=== PATIENT | male | born 1940 | race Caucasian/White ===

== ENCOUNTER 2016-05-05 08:04 | Observation (INO) | payer BC, MEDICARE, OTHER ==
[~2016-05-05] VITALS: Ht 165.1 cm; Wt 99.0 kg
[~2016-05-05 08:04] MED LIST: ASPI1TAB69 PO; ATOR40TA16 PO; BLOOD GLUCOSE M1 KIT; BLOOD GLUCOSE T1 TES; CARV12.52 PO; CENTTAB PO; LANCETS1 MI1; OMEP20TA PO; RAMI1.252 PO; [UNRECOGNIZED DRUG - OTHER]; levemir flexpen
[2016-05-05 08:06] VITALS: BP 166/73; PULSE 59; RESP 18; TEMP 98.2; O2SAT 97
[2016-05-05 08:14] VITALS: BP 174/71; PULSE 57; RESP 18; TEMP 98.1; O2SAT 100
--- NOTE | 2016-05-05 08:34 | PD ---
HPI Chief Complaint: Chest Pain Time Seen by Provider: 08:34 Travel History International Travel<30 days: No Contact w/Intl Traveler<30days: No Traveled to known affect area: No History of Present Illness HPI 76-year-old male came to the emergency room with history of chest pain and pressure that started from 1:30 AM. Patient says he was crouched in his recliner and woke up with the pain. He decided to go out of the recliner and lay on the bed so that it would relieve the pain. However this morning the pain was still there. It was radiating to the left side of his neck. He was concerned since he has a significant history of coronary artery disease in the form of 2 stents and CABG. Hence he decided to come to the emergency room. He had taken one full strength aspirin prior to coming in. No history of nausea or vomiting. Currently his pain is 3 out of 10. No history of recent travel long distance, surgery or procedures. His vital signs were stable upon arrival. [facility] Past Medical History Narrative Medical List of his past medical and social history was reviewed from the nursing note. Blood Disorders: No Cancer: No Cardiovascular Problems: Yes High Cholesterol: Yes Diabetes: Yes (BORDERLINE DIABETIC) Patient Takes Glucophage: No Endocrine: Yes Gastrointestinal Disorders: Yes Genitourinary: No Hiatal Hernia: Yes Hypertension: Yes Immune Disorder: No Musculoskeletal: Yes Neurologic: No Psychiatric: No Reproductive: No Respiratory: Yes Myocardial Infarction: Yes (2000) Sleep Apnea: Yes ?: Not Past Surgical History Abdominal Surgery: Yes (APPENDECTOMY) AICD: No Appendectomy: Yes Arteriovenous Shunt: No Cardiac Surgery: No Coronary Artery Bypass Graft: Yes (DOUBLE BYPASS 6 MONTHS AGO) Ear Surgery: No Endocrine Surgery: No Eye Surgery: No Genitourinary Surgery: No Gynecologic Surgery: No Insulin Pump: No Joint Replacement: No Neurologic Surgery: No Oral Surgery: No Pacemaker: No Thoracic Surgery: No Valve Replacement: Yes (AORTIC VALVE 6 MONTHS AGO) Other Surgery: Yes (APPENDIX, PYLENODAL CYST, CHEST CYST REMOVED) Social History Alcohol Use: Yes (BLEND WISKEY 1XPER WEEK ) Tobacco Use: No (QUIT 01/07/01) Substance Use: No Allergies-Medications (Allergen,Severity, Reaction): Coded Allergies: Penicillin (Verified Allergy, Severe, HIVES, 05/05/16) Cortisone (Verified Adverse Reaction, Severe, WEIGHT GAIN, 05/05/16) Comments List of his allergies reviewed from the nursing note. Reported Meds & Prescriptions Reported Meds & Active Scripts Active Omeprazole 20 Mg Tab 20 Mg PO BID Reported Levemir Flextouch Pen Inj (Insulin Detemir) 300 unit/3 ML Pen 30 Units SQ BID Administer @ 8AM & 6PM Ramipril 1.25 Mg Cap 1.25 Mg PO DAILY Centrum Silver (Multiple Vitamins W/ Minerals) 1 Tab 1 Tab PO DAILY 90 Days Carvedilol 12.5 Mg Tab 12.5 Mg PO BID Atorvastatin (Atorvastatin Calcium) 40 Mg Tab 40 Mg PO HS Aspirin 81 Mg Tabdr 81 Mg PO DAILY Narrative Medication List of his home medications reviewed from the nursing note. Review of Systems Except as stated in HPI: all other systems reviewed are Neg Physical Exam Narrative GENERAL: Awake, alert, obese, mild distress SKIN: Warm and dry. HEAD: Atraumatic. Normocephalic. EYES: Pupils equal and round. No scleral icterus. No injection or drainage. ENT: No nasal bleeding or discharge. Mucous membranes pink and moist. NECK: Trachea midline. No JVD. CARDIOVASCULAR: Regular rate and rhythm. No murmur appreciated. RESPIRATORY: No accessory muscle use. Clear to auscultation. Breath sounds equal bilaterally. Tender over the left inferior costal margin GASTROINTESTINAL: Abdomen soft, non-tender, nondistended. Hepatic and splenic margins not palpable. MUSCULOSKELETAL: No obvious deformities. No clubbing. No cyanosis. No edema. NEUROLOGICAL: Awake and alert. No obvious cranial nerve deficits. Motor grossly within normal limits. Normal speech. PSYCHIATRIC: Appropriate mood and affect; insight and judgment normal. Data Data Last Documented VS Vital Signs Date Time Temp Pulse Resp B/P Pulse Ox O2 Delivery O2 Flow Rate FiO2 05/05/16 09:22 59 18 164/68 99 Room Air 05/05/16 08:14 98.1 Orders Electrocardiogram (05/05/16 08:46) Basic Metabolic Panel (Bmp) (05/05/16 08:46) Ckmb (Isoenzyme) Profile (05/05/16 08:46) Complete Blood Count With Diff (05/05/16 08:46) Magnesium (Mg) (05/05/16 08:46) Prothrombin Time / Inr (Pt) (05/05/16 08:46) Act Partial Throm Time (Ptt) (05/05/16 08:46) Troponin I (05/05/16 08:46) Chest, Single Ap (05/05/16 08:46) Ecg Monitoring (05/05/16 08:46) Bilateral Bp Monitoring (05/05/16 08:46) Iv Access Insert/Monitor (05/05/16 08:46) Oximetry (05/05/16 08:46) Oxygen Administration (05/05/16 08:46) Admit Order (Ed Use Only) (05/05/16 10:02) Labs Laboratory Tests Test 05/05/16 08:45 White Blood Count 8.3 TH/MM3 Red Blood Count 3.51 MIL/MM3 Hemoglobin 11.9 GM/DL Hematocrit 33.9 % Mean Corpuscular Volume 96.6 FL Mean Corpuscular Hemoglobin 34.1 PG Mean Corpuscular Hemoglobin 35.3 % Concent Red Cell Distribution Width 13.9 % Platelet Count 177 TH/MM3 Mean Platelet Volume 7.7 FL Neutrophils (%) (Auto) 67.7 % Lymphocytes (%) (Auto) 18.6 % Monocytes (%) (Auto) 10.9 % Eosinophils (%) (Auto) 2.3 % Basophils (%) (Auto) 0.5 % Neutrophils # (Auto) 5.7 TH/MM3 Lymphocytes # (Auto) 1.6 TH/MM3 Monocytes # (Auto) 0.9 TH/MM3 Eosinophils # (Auto) 0.2 TH/MM3 Basophils # (Auto) 0.0 TH/MM3 CBC Comment DIFF FINAL Differential Comment Prothrombin Time 11.5 SEC Prothromb Time International 1.0 RATIO Ratio Activated Partial 29.8 SEC Thromboplast Time Sodium Level 139 MEQ/L Potassium Level 4.4 MEQ/L Chloride Level 105 MEQ/L Carbon Dioxide Level 28.2 MEQ/L Anion Gap 6 MEQ/L Blood Urea Nitrogen 17 MG/DL Creatinine 1.27 MG/DL Estimat Glomerular Filtration 55 ML/MIN Rate Random Glucose 152 MG/DL Calcium Level 8.5 MG/DL Magnesium Level 2.1 MG/DL Total Creatine Kinase 45 U/L Troponin I LESS THAN 0.02 NG/ML MDM Medical Decision Making Medical Screen Exam Complete: Yes Emergency Medical Condition: Yes Medical Record Reviewed: Yes Interpretation(s) Twelve-lead EKG was reviewed by me. Normal sinus rhythm, normal axis, first- degree AV block, bradycardia, nonspecific ST-T wave changes. Heart rate of 59 bpm. Differential Diagnosis ACS, non-STEMI, nonspecific chest pain Narrative Course 10 AM patient has significant history of coronary artery disease, poor control diabetes and obesity besides the fact that he 76 years old. I'm concerned for acute coronary syndrome and I would like to admit him to the chest pain center to be ruled out. Patient is comfortable with this plan. Procedures EKG Prior to Arrival: Yes Diagnosis Primary Impression: Chest pain Qualified Code: R07.9 - Chest pain, unspecified type Admitting Information Admitting Physician Requests: Observation Mague Lopez MD May 05, 2016 08:34 Admitting Physician Requests: Observation Mague Lopez MD May 05, 2016 08:34
[2016-05-05 09:06] LABS: AUTOMATED NEUTROPHIL # 5.7 TH/MM3 (1.8-7.7); BASOPHIL % 0.5 % (0.0-2.0); EOSINOPHIL # 0.2 TH/MM3 (0-0.4); EOSINOPHIL % 2.3 % (0.0-4.0); HEMATOCRIT 33.9 % (39.0-51.0); HEMO FLAGS DIFF FINAL; LYMPH % 18.6 % (9.0-44.0); LYMPHOCYTE # 1.6 TH/MM3 (1.0-4.8); MEAN CELL VOLUME 96.6 FL (80.0-100.0); MEAN CORPUSCULAR HEMOGLOBIN 34.1 PG (27.0-34.0); MEAN CORPUSCULAR HGB CONC 35.3 % (32.0-36.0); MONO % 10.9 % (0.0-8.0); NEUT % 67.7 % (16.0-70.0); PLATELET COUNT 177 TH/MM3 (150-450); RED BLOOD COUNT 3.51 MIL/MM3 (4.50-5.90); RED CELL DISTRIBUTION WIDTH 13.9 % (11.6-17.2); WHITE BLOOD COUNT 8.3 TH/MM3 (4.0-11.0)
[2016-05-05 09:13] LABS: APTT (PATIENT) 29.8 SEC (24.3-30.1); PROTHROMBIN TIME - PATIENT 11.5 SEC (9.8-11.6)
[2016-05-05 09:22] VITALS: BP 164/68; PULSE 59; PULSE 68; RESP 18; O2SAT 99
[2016-05-05 09:23] LABS: ANION GAP 6 MEQ/L (5-15); BICARBONATE 28.2 MEQ/L (21.0-32.0); BLOOD UREA NITROGEN 17 MG/DL (7-18); CHLORIDE 105 MEQ/L (98-107); GLOMERULAR FILTRATION RATE 55 ML/MIN (>89); MAGNESIUM 2.1 MG/DL (1.5-2.5); POTASSIUM 4.4 MEQ/L (3.5-5.1); SODIUM (NA) 139 MEQ/L (136-145)
[2016-05-05 09:31] LABS: CREATINE KINASE 45 U/L (39-308)
[2016-05-05] MEDS ORDERED: INSU1INJ5 SQ (09:40)
--- NOTE | 2016-05-05 09:41 | RADRPT ---
EXAM DATE/TIME: 05/05/2016 09:08 [place] COMPARISON: No previous studies available for comparison. INDICATIONS : Chest Pain MEDICAL HISTORY : Diabeties,, Hypertension, Myocardial Infarct, Dyspnea SURGICAL HISTORY : Valve replacement, Cabg ENCOUNTER: Initial ACUITY: 1 day PAIN SCORE: 7/10 LOCATION: Bilateral chest FINDINGS: Mild basilar consolidation and small pleural effusion seen on the left. Right lung reasonably clear. No pneumothorax seen. Heart size upper limits of normal. Patient has had previous median sternotomy. CONCLUSION: Mild consolidation and small effusion at the left lung base. Upper limits of normal heart size. Albino Pinto MD on May 05, 2016 at 9:38 Board Certified Radiologist. This report was verified electronically.
[2016-05-05 11:00] VITALS: BP 173/66; PULSE 54; RESP 16; O2SAT 98
[2016-05-05] MEDS ORDERED: ONDANSETRON HCL 4 MG/2 ML VIAL IV PRN (11:00)
[2016-05-05] MEDS ORDERED: SODIUM CHLORIDE 0.9% FLUSH 5 ML FLUSH IVF PRN (11:00)
[2016-05-05] MEDS ORDERED: ACETAMINOPHEN/HYDROcodone 325 MG/7.5 MG TAB PO PRN (11:00)
[2016-05-05] MEDS ORDERED: ACETAMINOPHEN 500 MG CPLT PO PRN (11:00)
[2016-05-05] MEDS ORDERED: ALPRAZolam 0.25 MG TAB PO PRN (11:00)
[2016-05-05] MEDS ORDERED: GLUCAGON 1 MG/ML VIAL IM/SQ PRN (11:15)
[2016-05-05] MEDS ORDERED: DEXTROSE 50% IN WATER 50 ML VIAL(D50) IV PRN (11:15)
--- NOTE | 2016-05-05 11:23 | HHI.HP ---
[facility] Primary Care Physician Mukund Hannah MD Chief Complaint Chest pain History of Present Illness This is a 76-year-old male with history of aortic valve replacement and two- vessel CABG presents to the ED with a complaint of waking up at 1:30 this morning with a soreness in the center of his chest. He states he cannot even touch the chest to hurt so bad. It is still that time but not as intense. He had no associated shortness breath nausea or diaphoresis. He states that his symptoms do not feel similar to needing stenting prior to needing his bypass and valve replaced. He denies any recent illnesses. Denies fevers or chills. Denies travel or trauma. He states he is to cardiac rehabilitation on Saturday, , and Saturday for the last 12 years and has had no discomfort while doing so. He has not been coughing. His circular ripsaw operator is Dr. keith and he last saw him in February. Cannot recall last stress testing. Review of Systems General: Patient denies fevers, chills recent, and recent travel HEENT: Patient denies headache, sore throat, difficulty swallowing. Cardiovascular: Has the chest discomfort as mentioned above. Denies sensation of heart beating rapidly or irregularly. Denies diaphoresis. No syncope. Respiratory: Denies shortness of breath or inspirational chest discomfort. Denies coughing wheezing or hemoptysis. GI: Patient denies nausea, vomiting, diarrhea, abdominal pain, bloody stools. Musculoskeletal: Patient denies joint pain or edema. Denies calf pain or edema. Neurovascular: Patient denies numbness, tingling, weakness in extremities. Denies headache. Endocrine: Denies polyuria and polydipsia. Hematologic: Denies easy bruising. Skin: Denies rash or itching. Past Family Social History Allergies: Coded Allergies: Penicillin (Verified Allergy, Severe, HIVES, 05/05/16) Cortisone (Verified Adverse Reaction, Severe, WEIGHT GAIN, 05/05/16) Past Medical History CAD with 2 vessel CABG and aortic valve replacement in 2005. Hypertension hyperlipidemia diabetes. Past Surgical History Aortic valve replacement and two-vessel CABG in 2005. He had stenting prior to CABG. He has had an appendectomy. Reported Medications Reported Meds & Active Scripts Active Omeprazole 20 Mg Tab 20 Mg PO BID Reported Levemir Flextouch Pen Inj (Insulin Detemir) 300 unit/3 ML Pen 30 Units SQ BID Administer @ 8AM & 6PM Ramipril 1.25 Mg Cap 1.25 Mg PO DAILY Centrum Silver (Multiple Vitamins W/ Minerals) 1 Tab 1 Tab PO DAILY 90 Days Carvedilol 12.5 Mg Tab 12.5 Mg PO BID Atorvastatin (Atorvastatin Calcium) 40 Mg Tab 40 Mg PO HS Aspirin 81 Mg Tabdr 81 Mg PO DAILY Active Ordered Medications Current Medications Medications (Trade) Dose Ordered Sig/Alanis Route Start Time Stop Time Status Last Admin (NS Flush) 2 ml UNSCH PRN IVF 05/05/16 11:00 UNV (NS Flush) 2 ml BID IVF 05/05/16 21:00 UNV (Tylenol) 500 mg Q4H PRN PO 05/05/16 11:00 UNV ([place] 7.5-325 Mg) 1 tab Q4H PRN PO 05/05/16 11:00 UNV (Zofran Inj) 4 mg Q6H PRN IV 05/05/16 11:00 UNV (Aspirin) 325 mg DAILY PO 05/06/16 09:00 UNV (Xanax) 0.25 mg Q8H PRN PO 05/05/16 11:00 UNV (Lipitor) 40 mg HS PO 05/05/16 21:00 UNV (Coreg) 12.5 mg BID PO 05/05/16 21:00 UNV (Protonix) 20 mg BID PO 05/05/16 21:00 UNV (Altace) 1.25 mg DAILY PO 05/06/16 09:00 UNV Family History Patient is adopted and does not know his family medical history. Social History Patient quit smoking about 10 years ago but prior that he smoked 2 packs daily for 35 years. He has occasional alcohol use. Denies illicit drugs. He has been for 29 years. Physical Exam Vital Signs Vital Signs Date Time Temp Pulse Resp B/P Pulse Ox O2 Delivery O2 Flow Rate FiO2 05/05/16 09:22 59 18 164/68 99 Room Air 05/05/16 09:22 99 Room Air 05/05/16 09:22 68 18 164/68 99 Room Air 05/05/16 08:21 56 18 100 Room Air 05/05/16 08:14 98.1 57 18 174/71 100 05/05/16 08:06 98.2 59 18 166/73 97 Physical Exam GENERAL: This is a well-nourished, well-developed patient, in no apparent distress. Patient speaks in clear complete sentences. Patient is pleasant. HEENT: Head is atraumatic and normocephalic. Neck is supple without lymphadenopathy and trachea is midline. No JVD or carotid bruits. CARDIOVASCULAR: Regular rate and rhythm without gallops or rubs. There is a grade 2 systolic murmur on the right sternal border. It does not radiate into the neck. RESPIRATORY: Clear to auscultation. Breath sounds equal bilaterally. No wheezes , rales, or rhonchi. Chest wall is very tender to palpate. This is the discomfort that brought him to the ED. No use of accessory muscles. GASTROINTESTINAL: Abdomen is nontender, nondistended. Abdomen soft. No obvious pulsatile mass or bruit. No CVA tenderness. Strong femoral pulses bilaterally. Normal bowel sounds in all quadrants. MUSCULOSKELETAL: Patient is moving upper and lower extremities freely. No calf tenderness or edema, no Homans sign. Strong pulses in upper and lower extremities. NEUROLOGICAL: Patient is alert and oriented. Cranial nerves 2-12 are grossly intact. No focal deficits and speech is clear. SKIN: No rash and turgor is normal. Laboratory Laboratory Tests Test 05/05/16 08:45 White Blood Count 8.3 Red Blood Count 3.51 Hemoglobin 11.9 Hematocrit 33.9 Mean Corpuscular Volume 96.6 Mean Corpuscular Hemoglobin 34.1 Mean Corpuscular Hemoglobin 35.3 Concent Red Cell Distribution Width 13.9 Platelet Count 177 Mean Platelet Volume 7.7 Neutrophils (%) (Auto) 67.7 Lymphocytes (%) (Auto) 18.6 Monocytes (%) (Auto) 10.9 Eosinophils (%) (Auto) 2.3 Basophils (%) (Auto) 0.5 Neutrophils # (Auto) 5.7 Lymphocytes # (Auto) 1.6 Monocytes # (Auto) 0.9 Eosinophils # (Auto) 0.2 Basophils # (Auto) 0.0 CBC Comment DIFF FINAL Differential Comment Prothrombin Time 11.5 Prothromb Time International 1.0 Ratio Activated Partial 29.8 Thromboplast Time Sodium Level 139 Potassium Level 4.4 Chloride Level 105 Carbon Dioxide Level 28.2 Anion Gap 6 Blood Urea Nitrogen 17 Creatinine 1.27 Estimat Glomerular Filtration 55 Rate Random Glucose 152 Calcium Level 8.5 Magnesium Level 2.1 Total Creatine Kinase 45 Troponin I LESS THAN 0.02 Result Diagram: 05/05/1645 05/05/1645 Imaging Last Impressions Chest X-Ray 05/05/16845 Signed Impressions: Service Date/Time: Thursday, May 05, 2016 09:08 - CONCLUSION: Mild consolidation and small effusion at the left lung base. Upper limits of normal heart size. Albino Pinto MD Course Initial EKG has sinus rhythm without significant ST segment depressions or elevations. Assessment and Plan Assessment and Plan * Atypical chest pain: Patient will continue to have cardiac enzymes and EKGs for ruling out purposes. His discomfort is very atypical. It is tender to palpate the area. He will get Toradol IV and reassess. He will be seen by Dr. Moreno of cardiology in the chest pain center. He likely will not have stress testing. He will be advised to follow-up with his circular ripsaw operator as primary care physician. * History of CAD: Patient has history of CABG and valve replacement. He will need to follow-up with Dr. keith. * Hypertension: Continue her medication. * Diabetes: We'll resume his medication at discharge. He will be on sliding scale insulin coverage while the chest pain center. He needs to follow a diabetic diet. * Hyperlipidemia: Continue current medication. Shant Wasserman May 05, 2016 11:23
[2016-05-05] MEDS ORDERED: KETOROLAC TROMETHAMINE 30 MG/ML (IVP) VIAL IVP ONE (12:00)
[2016-05-05 13:01] LABS: CREATINE KINASE 43 U/L (39-308)
[2016-05-05 13:08] VITALS: BP 131/78
--- NOTE | 2016-05-05 13:39 | HHI.DCPOC ---
Discharge Care Plan Diagnosis: (1) Chest pain, atypical (2) CAD (coronary artery disease) (3) DM (diabetes mellitus) (4) Hypertension (5) Hyperlipidemia (6) Hx of CABG (7) Hx of aortic valve replacement Goals to Promote Your Health * To prevent worsening of your condition and complications * To maintain your health at the optimal level Directions to Meet Your Goals Take your medications as prescribed Follow your dietary instruction Follow activity as directed Keep your appointments as scheduled Take your immunizations and boosters as scheduled If your symptoms worsen call your PCP, if no PCP go to Urgent Care Center or Emergency Room Smoking is Dangerous to Your Health. Avoid second hand smoke Call the 24-hour hour crisis hotline for domestic abuse at Shant Wasserman May 05, 2016 13:39
[2016-05-05] MEDS ORDERED: INSULIN ASPART SUPPLEMENTAL SCALE SQ SCH (16:00)
--- NOTE | 2016-05-05 16:45 | EKG ---
Date Performed: 05/05/2016 Time Performed: 08:16:50 PTAGE: 76 years EKG: SINUS BRADYCARDIA WITH FIRST DEGREE AV BLOCK ABNORMAL ECG PREVIOUS TRACING : 06/27/2010 10.38 Since previous tracing, no significant change noted DOCTOR: Eliezer Moreno Interpretating Date/Time 05/05/2016 16:44:21
[2016-05-05] MEDS ORDERED: CARVEDILOL 12.5 MG TAB PO SCH (21:00)
[2016-05-05] MEDS ORDERED: PANTOPRAZOLE SOD 20 MG DELAYED RELEASE TAB PO SCH (21:00)
[2016-05-05] MEDS ORDERED: SODIUM CHLORIDE 0.9% FLUSH 5 ML FLUSH IVF SCH (21:00)
[2016-05-05] MEDS ORDERED: ATORVASTATIN 40 MG TAB PO SCH (21:00)
[2016-05-06] MEDS ORDERED: RAMIPRIL 1.25 MG CAP PO SCH (09:00)
[2016-05-06] MEDS ORDERED: ASPIRIN 325 MG TAB PO SCH (09:00)
--- NOTE | 2016-05-06 15:23 | EKG ---
Date Performed: 05/05/2016 Time Performed: 12:06:09 PTAGE: 76 years EKG: SINUS BRADYCARDIA WITH FIRST DEGREE AV BLOCK ABNORMAL ECG PREVIOUS TRACING : 05/05/2016 08.16 Since previous tracing, no significant change noted DOCTOR: Eliezer Moreno Interpretating Date/Time 05/06/2016 15:21:32
[2016-08-03] MEDS ORDERED: FURO1TAB60 PO (15:52)
[2016-08-03] MEDS ORDERED: SPIR25TA PO (15:52)
[2016-08-03] MEDS ORDERED: INSU1INJ5 SQ (15:55)
[2016-08-24] MEDS ORDERED: SPIR25TA PO (15:37)
[2016-08-24] MEDS ORDERED: INSU1INJ5 SQ (15:37)
[2016-08-24] MEDS ORDERED: FURO1TAB60 PO (15:37)
[2016-09-10] MEDS ORDERED: INSU1INJ5 SQ (11:24)
== END 2016-05-05 14:26 | disposition home or self-care (01) ==
LOC: NEPE 08:04 → NEDA 10:03 → NEPGCP 13:23
DX: R07.9 Chest pain, unspecified (principal); I25.10 Atherosclerotic heart disease of native coronary artery without angina pectoris; I10 Essential (primary) hypertension; E78.5 Hyperlipidemia, unspecified; E11.9 Type 2 diabetes mellitus without complications; E78.00 Pure hypercholesterolemia, unspecified; G47.30 Sleep apnea, unspecified; I25.2 Old myocardial infarction; R94.31 Abnormal electrocardiogram [ECG] [EKG]; Z87.891 Personal history of nicotine dependence; Z95.1 Presence of aortocoronary bypass graft; Z95.2 Presence of prosthetic heart valve; Z79.4 Long term (current) use of insulin
CPT/HCPCS: 71010; 80048; 82550; 83735; 84484; 85025; 85610; 85730; 93005; 99285; G0378; J1885